=== PATIENT | male | born 1995 | race Caucasian/White ===

== ENCOUNTER 2017-07-25 20:29 | Emergency (ER) | payer BC ==
[~2017-07-25] VITALS: Ht 170.2 cm; Wt 77.7 kg
[~2017-07-25 20:29] MED LIST: CEPH250 PO; HYDR-3580 PO
[2017-07-25 20:50] VITALS: BP 107/70; PULSE 80; RESP 20; TEMP 97.9; O2SAT 98
[2017-07-25] MEDS ORDERED: VALT1TAB PO (21:20)
[2017-07-25] MEDS ORDERED: CLIN1CAP5 PO (21:20)
[2017-07-25] MEDS ORDERED: TRAM50TA PO (21:20)
[2017-07-25] MEDS ORDERED: HYDR-3533 PO (21:22)
--- NOTE | 2017-07-25 21:45 | PD ---
HPI Chief Complaint: Complaint Time Seen by Provider: 21:17 Travel History International Travel<30 days: No Contact w/Intl Traveler<30days: No Traveled to known affect area: No History of Present Illness HPI 22-year-old male presents to the emergency room requesting pain medication for primary HSV-2 outbreak. Patient first noticed lesions about one week ago. He went to an urgent care center several days after onset and received prescriptions for tramadol and valacyclovir. He has been taking medications as prescribed and reports moderate improvement in symptoms. States he is taking tramadol as prescribed but it does not seem to help. Pain is severe and worse with touching the scrotum or his scrotum contracts (like when he gets cold). He ran out of his pain medication today and went back to the urgent care where they refilled his tramadol and added clindamycin to cover for possible bacterial infection. Denies dysuria. He had fever, chills, and nausea that day outbreak started but has had none since. PFSH Past Medical History Cancer: No Cardiovascular Problems: No Diabetes: No Diminished Hearing: No Endocrine: No Genitourinary: No Hepatitis: No Hiatal Hernia: Yes Immune Disorder: No Musculoskeletal: No Neurologic: No Psychiatric: No Reproductive: Yes (HSV) Respiratory: No Immunizations Current: No Thyroid Disease: No Tetanus Vaccination: Unknown Influenza Vaccination: No Past Surgical History Abdominal Surgery: Yes (UMBILICAL HERNIA REPAIR) Body Medical Devices: NONE Cardiac Surgery: No Ear Surgery: No Endocrine Surgery: No Eye Surgery: No Genitourinary Surgery: No Joint Replacement: No Oral Surgery: No Pacemaker: No Thoracic Surgery: No Social History Alcohol Use: Yes (4-5XS WEEK) Tobacco Use: Yes (VAPES) Substance Use: No (DENIES) Allergies-Medications (Allergen,Severity, Reaction): Coded Allergies: No Known Allergies (Unverified , 07/25/17) Reported Meds & Prescriptions Reported Meds & Active Scripts Active Lortab (Hydrocodone-Acetaminophen) 5-325 Mg Tab 1 Tab PO Q6H PRN Reported Clindamycin (Clindamycin HCl) 150 Mg Cap 150 Mg PO Q6H Valtrex (Valacyclovir HCl) 1,000 Mg Tab 1,000 Mg PO TID Tramadol (Tramadol HCl) 50 Mg Tab 100 Mg PO Q6H PRN Review of Systems Except as stated in HPI: all other systems reviewed are Neg Physical Exam Narrative GENERAL: Well-nourished, well-developed male in no acute distress. Afebrile. Ambulatory. SKIN: Focused skin assessment warm/dry. HEAD: Normocephalic. EYES: No scleral icterus. No injection or drainage. NECK: Supple, trachea midline. No JVD or lymphadenopathy. CARDIOVASCULAR: Regular rate and rhythm without murmurs, gallops, or rubs. RESPIRATORY: Breath sounds equal bilaterally. No accessory muscle use. GENITOURINARY: Examined in the presence of the nurse. Circumcised. Testes descended bilaterally without evidence of rotation. No urethral discharge. Large, shallow ulcerations on the scrotum with surrounding erythema. Mild clear drainage. There are a few, 2 mm shallow ulcerations on the penile shaft. Extreme tenderness to palpation of the scrotum. No induration or lymphangitis. Data Data Last Documented VS Vital Signs Date Time Temp Pulse Resp B/P (MAP) Pulse Ox O2 Delivery O2 Flow Rate FiO2 07/25/17 20:50 97.9 80 20 107/70 (82) 98 MDM Medical Decision Making Medical Screen Exam Complete: Yes Emergency Medical Condition: Yes Medical Record Reviewed: Yes Differential Diagnosis Secondary bacterial infection, abscess, general herpes, genital warts Narrative Course 22-year-old male presents to the emergency room requesting pain medication for primary HSV 2 outbreak. Patient states his initial outbreak started 1 week ago and significantly improved but he still has severe pain. Pain is worsened with any touching of the scrotal tissue (during walking) and when the scrotal tissue contracts (when he gets cold). States his prescribed tramadol is not helping at all. Physical exam reveals severe, large, scabbed, shallow ulcerations on the scrotal tissue and 1 2 mm shallow ulceration on the penile shaft. Patient will be discharged with prescription for Lortab and told to continue taking valacyclovir and clindamycin as directed. Told to return for worsening symptoms. He understands and agrees to plan. Diagnosis Primary Impression: HSV-2 (herpes simplex virus 2) infection Referrals: Primary Care Physician [facility]. Additional Instructions: Rest and drink plenty of fluids. Take Lortab as directed, as needed for pain. Do not drink alcohol or drive while taking this medication. Continue indomethacin and valacyclovir as directed. Follow-up with a primary care physician. Return to the emergency room for worsening symptoms. Med/Other Pt SpecificInfo: Prescription(s) given Scripts Hydrocodone-Acetaminophen (Lortab) 5-325 Mg Tab 1 TAB PO Q6H Y for PAIN, #12 TAB 0 Refills Prov: Norbert Duval MD 07/25/17 Disposition: 01 DISCHARGE HOME Condition: Stable Kristin Clinton Jul 25, 2017 21:45
== END 2017-07-25 21:55 | disposition home or self-care (01) ==
LOC: PHEFT 20:29
DX: B00.9 Herpesviral infection, unspecified (principal)
CPT/HCPCS: 99283